=== PATIENT | female | born 1990 | race African-American/Black ===

== ENCOUNTER 2021-10-26 09:33 | Day surgery (SDC) | payer OTHER ==
[2021-10-20 14:05] VITALS: BMI 36.3
[2021-10-26] MEDS ORDERED: ROPIVACAINE HCL/PF 100 MG/20 ML VIAL ONE (11:25)
[2021-10-26] MEDS ORDERED: DEXAMETHASONE SOD PHOSPHATE 10 MG/1 ML VIAL ONE (11:25)
[2021-10-26] MEDS ORDERED: MIDAZOLAM HCL 2 MG/2 ML SINGLE DOSE VIAL ONE (11:25)
[2021-10-26] MEDS ORDERED: PROPOFOL 20 ML ONE ×2 (11:50→12:10)
[2021-10-26] MEDS ORDERED: LIDOCAINE HCL 2% JELLY (5 ML/TUBE) ONE (12:10)
[2021-10-26] MEDS ORDERED: LIDOCAINE HCL 2% 100 MG/5 ML DISP.SYRIN ONE (12:10)
[2021-10-26] MEDS ORDERED: SUCCINYLCHOLINE CHLORIDE 200 MG/10 ML SYRINGE ONE (12:33)
[2021-10-26] MEDS ORDERED: PROMETHAZINE HCL 25 MG/1 ML VIAL IVPUSH PRN (13:47)
[2021-10-26] MEDS ORDERED: oxyCODONE HCL 5 MG TABLET PO PRN ×2 (13:47)
[2021-10-26] MEDS ORDERED: ONDANSETRON 4 MG/2 ML VIAL IVPUSH PRN (13:47)
[2021-10-26] MEDS ORDERED: ONDANSETRON 4 MG/2 ML VIAL IVPUSH ONE (14:05)
[2021-10-26 15:30] VITALS: TEMP 97.3
[2021-10-26 15:36] VITALS: BP 128/81; PULSE 88
== END 2021-10-26 15:36 | disposition home or self-care (01) ==
LOC: FASU 09:33
PROVIDERS: ATTEND Orthopaedic Surgery
PROC: 0RBJ4ZZ Excision of Right Shoulder Joint, Percutaneous Endoscopic Approach (ICD-10-PCS; 2021-10-26)
PROC: 0PB94ZZ Excision of Right Clavicle, Percutaneous Endoscopic Approach (ICD-10-PCS; principal; 2021-10-26 12:37)
DX: M25.611 Stiffness of right shoulder, not elsewhere classified (principal); M24.111 Other articular cartilage disorders, right shoulder; M75.41 Impingement syndrome of right shoulder; M67.211 Synovial hypertrophy, not elsewhere classified, right shoulder; M94.211 Chondromalacia, right shoulder; M75.101 Unspecified rotator cuff tear or rupture of right shoulder, not specified as traumatic; M24.011 Loose body in right shoulder
CPT/HCPCS: 84703; 94760; J1100